=== PATIENT | male | born 1970 | race Caucasian/White ===

== ENCOUNTER 2020-10-29 23:07 | Emergency (ER) | payer SELFPAY ==
[2020-10-29 23:23] VITALS: BMI 32.4
[2020-10-30 01:35] LABS: BASO % 0.2 % (0-2.0); EOS % 0.8 % (0-4.5); HEMATOCRIT 40.2 % (35.4-49); HEMOGLOBIN 13.3 GM/dL (11.7-16.9); LYMPH % 12.8 % (8-40); MCH 27.2 pg (25.7-33.7); MEAN CELL VOLUME 82.3 fl (80-96); MEAN PLT VOLUME 9.3 fl (7.5-11.1); MONO % 8.5 % (3.8-10.2); NEUT % 77.7 % (42.8-82.8); PLATELET COUNT 198 K/MM3 (134-434); RBC 4.88 M/mm3 (4.00-5.60); RDW 15.5 % (11.9-15.9); WHITE BLOOD COUNT 10.3 K/mm3 (4.0-10.0)
[2020-10-30 01:55] LABS: POTASSIUM 3.6 mmol/L (3.5-5.1)
[2020-10-30 01:57] LABS: CALCIUM 9.5 mg/dL (8.5-10.1)
[2020-10-30 01:58] LABS: ALBUMIN 3.9 g/dl (3.4-5.0); BLOOD UREA NITROGEN 17.6 mg/dL (7-18)
[2020-10-30 02:01] LABS: CREATININE 0.7 mg/dL (0.55-1.3)
[2020-10-30 02:03] LABS: BILIRUBIN,TOTAL 0.6 mg/dL (0.2-1); TOT PROT 7.6 g/dl (6.4-8.2)
[2020-10-30 02:20] LABS: URINE APPEARANCE Cloudy; URINE BILIRUBIN 1+ (NEGATIVE); URINE COLOR Red; URINE GLUCOSE (UA) Negative (NEGATIVE); URINE KETONE Negative (NEGATIVE); URINE LEUK ESTERASE Trace (NEGATIVE); URINE NITRITE Negative (NEGATIVE); URINE PROTEIN 3+ (NEGATIVE)
[2020-10-30 03:13] VITALS: BP 151/96; TEMP 100.1
[2020-10-30] MEDS ORDERED: CEPHALEXIN MONOHYDRATE 500 MG CAPSULE (UD) PO ONE (04:28)
[2020-10-30] MEDS ORDERED: CEPHALEXIN MONOHYDRATE 500 MG CAPSULE (UD) ONE (05:00)
[2020-10-30 05:09] VITALS: PULSE 74
== END 2020-10-30 05:13 | disposition home or self-care (01) ==
LOC: JER 23:07
DX: N30.01 Acute cystitis with hematuria (principal); R30.0 Dysuria
CPT/HCPCS: 36415; 74176-TC; 80053; 81003; 85025; 87086; 87186; 87491; 87591; 99284-25